=== PATIENT | female | born 1950 | race Caucasian/White ===

== ENCOUNTER 2022-05-14 08:21 | Outpatient (CLI) | payer MEDICARE, SELFPAY ==
--- NOTE | ~2022-05-14 | NM_ITS ---
EXAMINATION: NM bone scan whole body DATE: 05/14/2022 11:51 INDICATION: Metastatic breast cancer TECHNIQUE: 86.5 mCi Tc-99m HDP was administered intravenously. Delayed whole-body scintigrams were o btained. 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 Single indeterminate focus of atypical increased uptake in the right occipital region which is n ot included on the CT imaging. No other suspicious foci of abnormal bone uptake to suggest metastatic disease. IMPRESSION: 1. Single atypical nonspecific focus of mild increased uptake in the right occipital region. Would co nsider head CT for further evaluation. No other lesions suspicious for metastatic disease. Reviewed, dictated and finalized at location [facility]. IMPRESSION: 1. Single atypical nonspecific focus of mild increased uptake in the right occi pital region. Would consider head CT for further evaluation. No other lesions s uspicious for metastatic disease.
--- NOTE | ~2022-05-14 | CT_ITS ---
EXAMINATION: CT chest abdomen pelvis w con DATE: 05/14/2022 09:02 INDICATION: Metastatic breast cancer TECHNIQUE: Computed tomography (CT) of the chest, abdomen, and pelvis was performed without intraveno us contrast. Automated exposure control and iterative reconstruction technique were employed. Exam do se: 809.47 mGy-cm total exam DLP. COMPARISON: 05/14/2022 radionuclide bone scan FINDINGS: CHEST CT: Normal heart size. No pericardial or pleural effusion. No hilar or mediastinal mass lesion or lymphad enopathy. No axillary lymphadenopathy is noted. No thoracic aortic aneurysm or dissection. Small sliding hiatal hernia. Right internal jugular central venous catheter tip in lower aspect of superior vena cava. There is asymmetric soft tissue thickening and retraction in the lower inner quadrant of the left case ast, which may be due to malignant breast cancer and/or postoperative scarring; clinical correlation and correlation with mammographic imaging and possibly PET/CT imaging may be helpful for further eval uation as clinically appropriate. Bilateral apical and anterior segment right upper lobe pulmonary scarring. Minimal discoid scarring o r atelectasis at the lung bases. No pulmonary infiltrate or consolidation. Calcified right upper lobe pulmonary granuloma consistent w ith old granulomatous disease. ABDOMEN/PELVIS CT: An approximately 1 x 1.5 cm gallstone is present. No gallbladder wall thickening or pericholecystic f luid or fat stranding. Diffuse hepatic steatosis. No hepatic, splenic or pancreatic space-occupying mass lesion. No bile vikki t or pancreatic duct dilatation. Normal morphology of the adrenal glands. Medial lower pole left renal approximately 6 mm cyst. Nearby wedge shaped area of diminished enhancem ent of the posteromedial lower pole renal cortex may be due to scarring or infarct. Small scar along the posterolateral lower pole of the right kidney. No urinary tract calculus or hydroureteronephrosis. Moderate thickening of the urinary bladder wall w hich may be due to relatively evacuated state. Calcified uterine fibroids. Abdominal aortic calcification, without aneurysm. No intraperitoneal or retroperitoneal or pelvic mas s lesion or adenopathy or ascites is detected. No bowel obstruction or intraperitoneal free air. Small fat-containing umbilical hernia. There is very prominent posterior spurring at T3-4 with associated narrowing of the AP dimension of t he spinal canal. Diffuse idiopathic skeletal hyperostosis of the thoracic spine. There is a large lytic lesion with surrounding sclerosis at L2 vertebral body, with partial destructi on of the superior vertebral endplate cortex. Osteoarthritic change at the hip joints, more severe on the left. IMPRESSION: Soft tissue thickening and retraction at the lower inner quadrant of the left breast, wh ich may be due to left breast malignancy and/or postoperative scarring Prominent lytic lesion of L2, possibly metastatic Very prominent posterior spurring at C3-4, with associated AP narrowing of the spinal canal Cholelithiasis 6 mm left renal cyst. Probable focal bilateral renal scarring Reviewed, dictated and finalized at [facility]. Reviewed, dictated and finalized at location [facility]. IMPRESSION: Soft tissue thickening and retraction at the lower inner quadrant of the left breast, which may be due to left breast malignancy and/or postopera tive scarring Prominent lytic lesion of L2, possibly metastatic Very prominent posterior spurring at C3-4, with associated AP narrowing of the spinal canal Cholelithiasis 6 mm left renal cyst. Probable focal bilateral renal scarring
[2022-05-14 08:57] LABS: Estimated Glomerular Filt Rate 55
== END 2022-05-14 08:22 | disposition home or self-care (01) ==
PROVIDERS: PCP Internal Medicine Hematology & Oncology; Visit Provider Internal Medicine Hematology & Oncology
DX: C50.919 Malignant neoplasm of unspecified site of unspecified female breast (principal); K80.20 Calculus of gallbladder without cholecystitis without obstruction; N28.1 Cyst of kidney, acquired
CPT/HCPCS: 71260; 74177; 78306; A9561; Q9967

== ENCOUNTER 2023-05-27 10:15 | Outpatient (CLI) | payer MEDICARE, SELFPAY ==
--- NOTE | ~2023-05-27 | XR_ITS ---
EXAMINATION: XR lg joint inject/asp w image DATE: 05/27/2023 11:28 INDICATION: Left hip pain TECHNIQUE: A time-out was performed to verify the patient's name, date of , and procedure to b e performed. The procedure including the risks, benefits, and alternatives was discussed with the pat ient. Risks discussed included bleeding and infection. The patient understood the risks and agreed to proceed. The skin overlying the left joint was prepped and draped in usual sterile fashion. Anesth etic was administered with 1% lidocaine subcutaneously. A 22 G needle was advanced under fluoroscopi c guidance into the joint. Injection of 1 mL of Omnipaque 240 confirmed intra-articular position of the needle. Subsequently, injectate consisting of 5 mL of a 4:1 mixture of 1% lidocaine: 80 mg/mL De po-Medrol for a total dosage of 80 mg Depo-Medrol was instilled. Washout of contrast was seen confirm ing intra-articular administration. The needle was removed and the entry site was cleaned and dressed . There were no immediate complications. Fluoroscopy exposure time was 0.1 minutes. The total number of images was 2. FINDINGS: Real-time fluoroscopy demonstrates the needle in the left hip joint. Patient's pain prior t o procedure:05/23. Patient's pain following the procedure: 01/21. IMPRESSION: 1. Successful left hip joint injection of local anesthetic and steroid with decrease in the patient's presenting pain. Reviewed, dictated and finalized at location A. IMPRESSION: 1. Successful left hip joint injection of local anesthetic and steroid with dec rease in the patient's presenting pain.
== END 2023-05-27 10:16 | disposition home or self-care (01) ==
PROVIDERS: PCP Internal Medicine Hematology & Oncology; Visit Provider Orthopaedic Surgery
DX: M25.551 Pain in right hip (principal); M25.552 Pain in left hip
CPT/HCPCS: 20610; 77002; J1040; Q9966

== ENCOUNTER 2024-06-03 12:15 | Outpatient (CLI) | payer MEDICARE, SELFPAY ==
--- NOTE | ~2024-06-03 | DEXA_ITS ---
Bone Density Report Name: SRINIVASA JACOBSEN Age: 73 Sex: Female Ethnicity: White Date of : 1950 Indication: hyperparathyroidism; height loss; cancer; hysterectomy; Referring Provider: TERESSA REZA Study: Bone densitometry was performed. Exam Date: June 03, 2024 Accession number: [id number] Bone Density: Region BMD T-score Z-score Classification AP Spine(L1-L4) 1.314 2.4 4.7 Normal Femoral Neck (Left) 0.962 1.0 3.0 Normal Total Hip (Left) 1.021 0.6 2.3 Normal Femoral Neck (Right) 1.114 2.4 4.3 Normal Total Hip (Right) 1.050 0.9 2.5 Normal Total Hip Mean 1.035 0.8 2.4 Normal World Health Organization criteria for BMD impression classify patients as: Normal (T-score at or above -1.0), Osteopenia (T-score between -1.0 and -2.5), or Osteoporosis (T-score at or below -2.5). 10-year Fracture Risk: FRAX not reported because: All T-scores for Spine Total, Hip Total, Femoral Neck at or above -1.0 Clinical Information Provided by Patient: Has used the following medications: Vitamin D, Calcium Has the following medical conditions: Cancer, Hyperparathyroidism, Hysterectomy Patient maximum height was 66.0 No regular weight bearing exercise Onset of menses at age 11 Number of children 0 Impression: The patient has normal bone mass. Discussion: LOW RISK OF FRACTURE; BONE DENSITY IS WELL ABOVE THE MINIMUM DESIRABLE LEVEL AND ABOVE AVERAGE FOR AGE AND SEX AT ALL SKELETAL SITES TESTED. This person's bone density is above expected limits for age and sex. This is rarely clinically significant, but should be pursued if there are significant musculoskeletal complaints. The patient should follow a healthful lifestyle (good nutrition with adequate calcium and vitamin D, and appropriate weight-bearing exercise). Follow-Up: Consider repeating this study in 5 years or sooner if there is some new clinical indication. Reported by: NEETA on 06/03/2024 12:44:00 PM. Reviewed, dictated and finalized at location [facility]FF[facility]
== END 2024-06-03 12:16 | disposition home or self-care (01) ==
LOC: ANHIMG 12:16
PROVIDERS: PCP Internal Medicine Hematology & Oncology; Visit Provider Internal Medicine Hematology & Oncology
DX: M85.89 Other specified disorders of bone density and structure, multiple sites (principal)
CPT/HCPCS: 77080